=== PATIENT | female | born 1960 | race Caucasian/White ===

== ENCOUNTER 2021-04-05 15:07 | Outpatient (CLI) | payer BC | END 2021-04-05 15:08 | disposition home or self-care (01) | LOC: DTY/OP 15:07 | PROVIDERS: ATTEND Surgery | DX: E03.9 Hypothyroidism, unspecified (principal); G47.33 Obstructive sleep apnea (adult) (pediatric); Z68.41 Body mass index [BMI] 40.0-44.9, adult | CPT/HCPCS: 97802 ==

== ENCOUNTER 2021-06-12 08:30 | Inpatient (IN) | payer BC ==
[2021-06-13 13:29] VITALS: BMI 39.1
[2021-06-18] MEDS ORDERED: Scopolamine 1.5 mg/72 hour Patch ONE (09:51)
[2021-06-18] MEDS ORDERED: Enoxaparin Sodium 40 MG/0.4 ML SYRINGE ONE (09:52)
[2021-06-18] MEDS ORDERED: fentaNYL Citrate/PF 100 MCG/2 ML SYRINGE ONE (10:41)
[2021-06-18] MEDS ORDERED: SUGAMMADEX SODIUM 200 MG/2 ML VIAL ONE (10:49)
[2021-06-18] MEDS ORDERED: Lidocaine 1% w/Epinephrine 1:100K 20 ML VIAL ONE (10:50)
[2021-06-18] MEDS ORDERED: Bupivacaine 0.25% 10 ML VIAL ONE (10:50)
[2021-06-18] MEDS ORDERED: Clindamycin/D5W 600 mg/50 ml Premix Bag ONE (11:01)
[2021-06-18] MEDS ORDERED: Dexamethasone 20 MG/5 ML VIAL ONE (11:08)
[2021-06-18] MEDS ORDERED: ePHEDrine 50 MG/ML VIAL ONE (11:08)
[2021-06-18] MEDS ORDERED: PROPOFOL 200 MG/20 ML VIAL ONE (11:08)
[2021-06-18] MEDS ORDERED: Lidocaine 1% PF 5 ML VIAL ONE (11:08)
[2021-06-18] MEDS ORDERED: Ondansetron PF 4 MG/2 ML Vial ONE (11:08)
[2021-06-18] MEDS ORDERED: Rocuronium Bromide 10 MG/ML (10ML VIAL) ONE (11:08)
[2021-06-18] MEDS ORDERED: Ketorolac Tromethamine 30 MG/ML VIAL ONE (11:08)
[2021-06-18] MEDS ORDERED: Meperidine HCl/PF 25 MG/ML VIAL SLOW IVP PRN (12:42)
[2021-06-18] MEDS ORDERED: Promethazine HCl 25 MG/ML VIAL IVPB PRN (12:42)
[2021-06-18] MEDS ORDERED: Promethazine HCl 25 MG/ML VIAL IM PRN ×2 (12:42→12:57)
[2021-06-18] MEDS ORDERED: HYDROmorphone 2 MG/ML VIAL SLOW IVP PRN (12:42)
[2021-06-18] MEDS ORDERED: Ondansetron HCl/PF 4 MG/2 ML Vial IVP PRN (12:42)
[2021-06-18] MEDS ORDERED: Fentanyl 250 MCG/5 ML VIAL ONE (12:43)
[2021-06-18] MEDS ORDERED: HYDROmorphone 0.5 MG/0.5 ML SYRINGE ONE (12:46)
[2021-06-18] MEDS ORDERED: Promethazine HCl 25 MG/ML VIAL ONE (12:48)
[2021-06-18] MEDS ORDERED: Ondansetron PF 4 MG/2 ML Vial IVP PRN (12:57)
[2021-06-18] MEDS ORDERED: Hydrocodone-Acetamin 15 ML UDCUP PO PRN (12:57)
[2021-06-18] MEDS ORDERED: Morphine 2 MG/ML VIAL SLOW IVP PRN (12:57)
[2021-06-18] MEDS ORDERED: hydrALAZINE 20 MG/ML VIAL SLOW IVP PRN (12:57)
[2021-06-18] MEDS ORDERED: Dextrose 5% in Water 1,000 ML IV PRN (12:57)
[2021-06-18] MEDS ORDERED: Dextrose 50% Abboject 50 ML SYRINGE SLOW IVP PRN (12:57)
[2021-06-18] MEDS ORDERED: diphenhydrAMINE 50 MG/ML VIAL IVP PRN (12:57)
[2021-06-18] MEDS: Ketorolac Tromethamine 30 MG/ML VIAL IVP SCH ×2 (17:19→23:12)
[2021-06-18] MEDS: D5 1/2 NS w/20 mEq KCL 1,000 ML IV SCH ×2 (17:19→23:15)
[2021-06-18] MEDS ORDERED: Citalopram 20 MG TAB PO SCH (21:00)
[2021-06-18] MEDS ORDERED: Estradiol 1 MG TAB PO SCH (21:00)
[2021-06-18] MEDS ORDERED: Loratadine 10 MG TAB PO SCH (21:15)
[2021-06-19] MEDS: D5 1/2 NS w/20 mEq KCL 1,000 ML IV SCH (05:47)
[2021-06-19] MEDS: Ketorolac Tromethamine 30 MG/ML VIAL IVP SCH ×2 (05:48→11:00)
[2021-06-19] MEDS ORDERED: Levothyroxine Sodium 25 MCG TAB PO SCH (06:00)
[2021-06-19] MEDS ORDERED: Levothyroxine Sodium 112 MCG TAB PO SCH (06:00)
[2021-06-19 06:19] LABS: #Lymphocytes 1.6 thou/uL (1.20-3.40); #Monocytes 0.7 thou/uL (0.11-0.59); #Neutrophils 8.3 thou/uL (1.40-6.50); %Basophils 0.3 % (0.0-1.0); %Eosinophils 0.3 % (0.0-10.0); %Monocytes 6.2 % (0.0-10.0); %Neutrophils 78.2 % (42.0-75.0); Hemoglobin 12.5 g/dL (12.0-16.0); Mean Corpuscular HGB CONC 31.7 g/dL (32.0-36.0); Mean Corpuscular Hemoglobin 31.5 pg (27.0-31.0); Mean Corpuscular Volume 99.6 fL (78.0-98.0); Mean Platelet Volume 6.5 fL (7.4-10.4); Platelet Count 332 thou/uL (130-400); RBC Distribution Width 11.4 % (11.5-14.5); Red Blood Cell (RBC) Count 3.96 mill/uL (4.20-5.40); White Blood Cell (WBC) Count 10.6 thou/uL (4.8-10.8)
[2021-06-19 06:42] LABS: Anion Gap 13 mmol/L (10-20); BUN (Urea Nitrogen) 12 mg/dL (9.8-20.1); Calc. Creatinine Clearance 122 mL/min (70-130); Carbon Dioxide 24 mmol/L (23-31); Chloride 103 mmol/L (98-107); Glucose 140 mg/dL (80-115); Potassium 4.6 mmol/L (3.5-5.1); Sodium 135 mmol/L (136-145)
[2021-06-19] MEDS ORDERED: Pantoprazole 40 MG VIAL IVP SCH (09:00)
[2021-06-19] MEDS ORDERED: Enoxaparin Sodium 40 MG/0.4 ML SYRINGE SC SCH (09:00)
[2021-06-19 11:57] VITALS: BP 108/72; TEMP 98.5
== END 2021-06-19 13:00 | disposition home or self-care (01) | DRG 621 ==
LOC: SURG A 06-18 09:25 → SURG B 06-18 14:09
PROVIDERS: ADMIT Surgery; ATTEND Surgery
PROC: 0DB64Z3 Excision of Stomach, Percutaneous Endoscopic Approach, Vertical (ICD-10-PCS; principal; 2021-06-18)
PROC: 8E0W4CZ Robotic Assisted Procedure of Trunk Region, Percutaneous Endoscopic Approach (ICD-10-PCS; 2021-06-18)
DX: E66.01 Morbid (severe) obesity due to excess calories (principal); Z20.822 Contact with and (suspected) exposure to COVID-19; Z68.39 Body mass index [BMI] 39.0-39.9, adult; Z88.1 Allergy status to other antibiotic agents; Z90.710 Acquired absence of both cervix and uterus; Z91.030 Bee allergy status
CPT/HCPCS: 36415; 80048; 85025; 88307; 94760; C9113; J1100; J1170; J1650; J1885; J2405; J2550; J2704; J3010; J3480; J3490; S0020

== ENCOUNTER 2021-06-13 08:28 | Outpatient (CLI) | payer BC ==
[2021-06-13 21:42] LABS: SARS-CoV-2 PCR by NAA Not Detected (NotDetected)
== END 2021-06-13 08:29 | disposition home or self-care (01) ==
LOC: LABBT 08:28
PROVIDERS: ATTEND Surgery
DX: E03.9 Hypothyroidism, unspecified (principal); G47.00 Insomnia, unspecified; E66.01 Morbid (severe) obesity due to excess calories; Z68.41 Body mass index [BMI] 40.0-44.9, adult; Z20.822 Contact with and (suspected) exposure to COVID-19
CPT/HCPCS: U0003; U0005